=== PATIENT | male | born 1995 | race Caucasian/White ===

== ENCOUNTER 2023-08-23 16:35 | Emergency (ER) | payer SELFPAY ==
--- NOTE | 2023-08-23 17:04 | ER ---
Nurse's Notes Formerly [facility] Name: Campos Louis Age: 27 yrs Sex: Male : 1995 Arrival Date: 08/23/2023 Time: 16:35 Bed IW1 Private MD: Diagnosis: otitis media with effusion, bilateral Presentation: 08/22 16:48 Chief complaint: Patient states: Muffled hearing to both ears for 2 days. No fever. ll1 Slight nasal congestion. Coronavirus screen: Client denies travel out of the [place] in the last 14 days. At this time, the client does not indicate any symptoms associated with coronavirus-19. Ebola Screen: Patient denies travel to an Ebola-affected area in the 21 days before illness onset. Initial Sepsis Screen: Does the patient meet any 2 criteria? No. Patient's initial sepsis screen is negative. Does the patient have a suspected source of infection? No. Patient's initial sepsis screen is negative. Risk Assessment: Do you want to hurt yourself or someone else? Patient reports no desire to harm self or others. Onset of symptoms was August 22, 2023. 16:48 Method Of Arrival: Ambulatory ll1 16:48 Acuity: NABILA 4 ll1 Triage Assessment: 16:48 General: Appears in no apparent distress. Behavior is calm, cooperative, appropriate ll1 for age. Pain: Denies pain. EENT: Reports decreased hearing in right ear and left ear. Historical: - Allergies: 16:48 No Known Allergies; ll1 - Home Meds: 16:48 None [Active]; ll1 - PMHx: 16:48 None; ll1 - PSHx: 16:48 Tonsillectomy; ll1 - Immunization history:: Adult Immunizations up to date. - Infectious Disease History:: Denies. - Social history:: Smoking status: Reported history of juuling and/or vaping. Patient/guardian denies using tobacco. Screenin:11 [facility] ED Fall Risk Assessment (Adult) History of falling in the last 3 months, ll1 including since admission No falls in past 3 months (0 pts) Confusion or Disorientation No (0 pts) Intoxicated or Sedated No (0 pts) Impaired Gait No (0 pts) Mobility Assist Device Used No (0 pt) Altered Elimination No (0 pt) Score/Fall Risk Level 0 - 2 = Low Risk Maintained a safe environment, Hourly rounding (assess needs \T\ fall precautionary measures) done. Abuse screen: Denies threats or abuse. Nutritional screening: No deficits noted. Tuberculosis screening: No symptoms or risk factors identified. Assessment: 17:10 Reassessment: No changes from previously documented assessment. Patient and/or family ll1 updated on plan of care and expected duration. Pain level reassessed. Patient is alert, oriented x 3, equal unlabored respirations, skin warm/dry/pink. Vital Signs: 16:48 BP 117 / 63; Pulse 89; Resp 16; Temp 98.2; Pulse Ox 98% ; Weight 58.97 kg; Height 5 ft. ll1 9 in. ; Pain 0/10; 16:48 Body Mass Index 19.20 (58.97 kg, 175.26 cm) ll1 16:48 Pain Scale: Adult [facility] ED Course: 16:37 Patient arrived in ED. im 16:49 Triage completed. 1 16:57 [facility] sb[facility] 16:57 Morgan Ash MD is Attending Physician. sb4 16:58 Arm band placed on Patient placed in an exam room, on a stretcher. ll1 17:11 No provider procedures requiring assistance completed. Patient did not have IV access ll1 during this emergency room visit. 19:34 Patient has correct armband on for positive identification. Bed in low position. ll1 Provided Education on: Finish prescribed antibiotics.. Administered Medications: No medications were administered Medication: 19:34 VIS not applicable for this client. 1 Outcome: 17:03 Discharge ordered by . sb4 17:11 Patient left the ED. 1 17:11 Discharged to home ambulatory, 1 17:11 Condition: stable 17:11 Discharge instructions given to patient, Instructed on discharge instructions, follow up and referral plans. medication usage, Demonstrated understanding of instructions, follow-up care, medications, Prescriptions given X 2, Signatures: Adia Mckeon RN RN ll1 Jeanine Adkins PA-C PA-C sb4 Jennifer Hutchins im
--- NOTE | 2023-08-23 17:04 | EDPHYS ---
Physician Documentation [facility] Name: Campos Louis Age: 27 yrs Sex: Male : 1995 Arrival Date: 08/23/2023 Time: 16:35 Bed IW1 Private MD: ED Physician Morgan Ash HPI: 08/22 18:41 This 27 yrs old Male presents to ER via Ambulatory with complaints of Muffled hearing. sb4 18:44 Patient states that his ears have been muffled the past couple of days, cannot hear as sb4 well as usual. He also reports nasal and sinus congestion. Denies any known fevers, cough, pain in his ears. Historical: - Allergies: 16:48 No Known Allergies; ll1 - Home Meds: 16:48 None [Active]; ll1 - PMHx: 16:48 None; ll1 - PSHx: 16:48 Tonsillectomy; ll1 - Immunization history:: Adult Immunizations up to date. - Infectious Disease History:: Denies. - Social history:: Smoking status: Reported history of juuling and/or vaping. Patient/guardian denies using tobacco. ROS: 18:44 Constitutional: Negative for fever, chills, and weight loss, sb4 18:44 ENT: Positive for hearing loss, 18:44 All other systems are negative, Exam: 18:44 Constitutional: This is a well developed, well nourished patient who is awake, alert, sb4 and in no acute distress. Head/Face: Normocephalic, atraumatic. Eyes: Extra-ocular motions intact. Periorbital areas with no swelling, redness, or edema. Skin: Warm, dry with normal turgor. Normal color with no rashes, no lesions, and no evidence of cellulitis. 18:44 ENT: TM's: fluid levels, bilaterally, Nose: is normal, no acute changes, Vital Signs: 16:48 BP 117 / 63; Pulse 89; Resp 16; Temp 98.2; Pulse Ox 98% ; Weight 58.97 kg; Height 5 ft. ll1 9 in. ; Pain 0/10; 16:48 Body Mass Index 19.20 (58.97 kg, 175.26 cm) ll1 16:48 Pain Scale: Adult ll1 MDM: 16:58 Patient medically screened. sb4 18:45 Data reviewed: vital signs, nurses notes, and as a result, I will discharge patient. sb4 Counseling: I had a detailed discussion with the patient and/or guardian regarding the historical points, exam findings, and any diagnostic results supporting the discharge/admit diagnosis, to return to the emergency department if symptoms worsen or persist or if there are any questions or concerns that arise at home. Administered Medications: No medications were administered Disposition: 19:35 Co-signature as Attending Physician, Morgan Ash MD I reviewed the patient's care rt provided by the Advanced Practice Provider and agree with the diagnosis and treatment plan. Disposition Summary: 08/23/23 17:03 Discharge Ordered Notes: Location: Home sb4 Problem: new sb4 Symptoms: are unchanged sb4 Condition: Stable sb4 Diagnosis - otitis media with effusion, bilateral sb4 Followup: sb4 - With: Emergency Department - When: As needed - Reason: Trouble breathing, Worsening of condition Discharge Instructions: - Discharge Summary Sheet sb4 - Otitis Media With Effusion, Adult sb4 Forms: - Work release form hb - Patient Portal Instructions sb4 - Leadership Thank You Letter sb4 Prescriptions: - Sudafed 30 mg Oral tablet - take 1 tablet ORAL route every 6 hours; 20 tablet; Refills: 0, Product sb4 Selection Permitted - phenylephrine HCl 1 % Nasal spray, non-aerosol - spray 1 spray INTRANASAL route every 6 hours for 3 days; 1 Applicator; Refills: sb4 0, Product Selection Permitted Signatures: Adia Mckeon, OMA RN ll1 Jeanine Adkins PA-C PA-C sb4 Morgan Ash MD MD rt
[2023-08-23 22:43] VITALS: BP 117/63; TEMP 98.2; O2SAT 98
== END 2023-08-23 17:11 | disposition home or self-care (01) ==
LOC: ER 16:35
DX: H65.93 Unspecified nonsuppurative otitis media, bilateral (principal)
CPT/HCPCS: 99283